=== PATIENT | male | born 1980 | race Caucasian/White ===

== ENCOUNTER 2017-09-16 07:24 | Day surgery (SDC) | payer OTHER ==
[2017-09-12 10:32] LABS: BASOPHILS % (AUTO) 0.2 % (0-1); EOSINOPHILS # (AUTO) 0.1 X10'3 (0-0.9); EOSINOPHILS % (AUTO) 1.7 % (0-6); LYMPHOCYTES # (AUTO) 1.2 X10'3 (1.1-4.8); LYMPHOCYTES % (AUTO) 15.7 % (21-51); MEAN CORPUSCULAR HEMOGLOBIN 29.5 PG (27.0-31.0); MEAN CORPUSCULAR VOLUME 86.6 FL (78-98); MEAN PLATELET VOLUME 8.4 FL (7.4-10.4); MONOCYTES # (AUTO) 0.5 X10'3 (0-0.9); MONOCYTES % (AUTO) 6.5 % (2-12); NEUTROPHILS # (AUTO) 5.6 X10'3 (1.8-7.7); NEUTROPHILS % (AUTO) 75.9 % (42-75); PRE OP HEMATOCRIT 50.1 % (42.0-52.0); PRE OP HEMOGLOBIN 17.1 g/dL (14.0-17.9); PRE OP PLATELET COUNT 281 X10'3 (140-440); RED BLOOD COUNT 5.79 X10'6 (4.70-6.10); RED CELL DISTRIBUTION WIDTH 14.8 % (11.5-14.5)
[2017-09-12 10:46] LABS: ALBUMIN 4.5 G/DL (3.4-5.0); ALBUMIN/GLOBULIN RATIO 1.3 (1.1-1.5); ALKALINE PHOSPHATASE 83 IU/L (46-116); BLOOD UREA NITROGEN 19 MG/DL (7-18); BUN/CREATININE RATIO 19.2 (5.4-32.0); CALCIUM 9.2 MG/DL (8.5-10.1); CHLORIDE 106 MMOL/L (99-107); CREATININE 0.99 MG/DL (0.60-1.10); PRE OP ALT 29 U/L (30-65); PRE OP ANION GAP 9 (8-16); PRE OP AST 17 U/L (10-37); PRE OP BILIRUB, TOTAL 1.7 MG/DL (0.0-1.0); PRE OP GLUCOSE 99 MG/DL (70-104); PRE OP POTASSIUM 3.8 MMOL/L (3.4-5.1); PRE OP SODIUM 142 MMOL/L (135-145); TOTAL CARBON DIOXIDE 26.7 MMOL/L (24-32); eGFR 84 ML/MIN
[~2017-09-16] VITALS: Ht 188 cm; Wt 106.0 kg
[2017-09-16] VITALS (8 sets, daily range): BP systolic 137–156; BP diastolic 86–99
[~2017-09-16 07:24] MED LIST: Cefazolin 2GM/100ML NS IVPB IV ONE; MULT-1085 PO; OMEP20CA10 PO; famotidine 20mg tablet PO ONE; ringers solution, lacted 1,000 ML IV SCH
[2017-09-16] MEDS ORDERED: ceFAZolin 1000mg inj ONE (09:31)
[2017-09-16] MEDS ORDERED: BUPIVAcaine/PF 2.5 mg/ml (0.25%) 30ml vial ONE (09:32)
[2017-09-16] MEDS ORDERED: sevoflurane 250ml liquid IH ONE (09:47)
[2017-09-16] MEDS ORDERED: fentaNYL/PF 50MCG/1 ML 2ML syringe ONE ×2 (09:52→10:02)
[2017-09-16] MEDS ORDERED: midazolam 2 mg/2 ml injection ONE (09:53)
[2017-09-16] MEDS ORDERED: dexamethasone sod phosphate 4mg/ml inj. ONE (10:01)
[2017-09-16] MEDS ORDERED: rocuronium 10mg/ml inj IV ONE (10:01)
[2017-09-16] MEDS ORDERED: propofol inj 20 ML IV ONE (10:01)
[2017-09-16] MEDS ORDERED: LIDOcaine 2% (20mg/ml) 5ml vial ONE (10:01)
[2017-09-16] MEDS ORDERED: glycopyrrolate 0.2mg/ml inj ONE (10:07)
[2017-09-16] MEDS ORDERED: ondansetron/PF 4mg/2ml inj ONE (10:07)
[2017-09-16] MEDS ORDERED: neostigmine methylsulfate 1 MG/ML 10ml vial ONE (10:07)
[2017-09-16] MEDS ORDERED: ringers solution, lacted 1,000 ML IV SCH (10:46)
[2017-09-16] MEDS ORDERED: meperidine/PF 50mg/ml syringe IV PRN ×3 (10:50)
[2017-09-16] MEDS ORDERED: ondansetron/PF 4mg/2ml inj IV PRN (10:50)
[2017-09-16] MEDS ORDERED: proCHLORperazine 10 MG/2 ml inj IV PRN (10:50)
[2017-09-16] MEDS ORDERED: morphine 4 MG/ML inj SYRINge IV PRN ×2 (10:50)
[2017-09-16] MEDS ORDERED: HYDROcodone/acetaminophen 10/325mg tab PO ONE (12:05)
== END 2017-09-16 12:08 | disposition home or self-care (01) ==
LOC: PAS 07:24
PROVIDERS: ATTEND Surgery
DX: K43.2 Incisional hernia without obstruction or gangrene (principal); K21.9 Gastro-esophageal reflux disease without esophagitis; Z79.899 Other long term (current) drug therapy; Z98.890 Other specified postprocedural states; Z87.891 Personal history of nicotine dependence
CPT/HCPCS: 36415; 49565; 49568; 80053; 85025; A6449; C1781; J0690; J1100; J2001; J2175; J2250; J2405; J2704; J2710; J3010; J3490; J7120; A7000